=== PATIENT | female | born 1955 | race Two or more races ===

== ENCOUNTER 2023-06-18 07:15 | Inpatient (IN) | payer OTHER ==
[~2023-06-18] VITALS: Ht 162.6 cm; Wt 100.7 kg
[2023-06-18 09:01] LABS: HEMOGLOBIN 13.8 g/dL (12.0-15.00); MEAN CELL VOLUME 90.8 fL (80.00-100.00); MEAN CORPUSCULAR HEMOGLOBIN 31.3 pg (27.00-32.0); MEAN CORPUSCULAR HGB CONC 34.4 g/dl (32.0-36.0); PLATELET COUNT 236 K/uL (150-450); RED BLOOD COUNT 4.41 M/uL (4.00-6.00); RED CELL DISTRIBUTION WIDTH 14.3 % (11.5-14.5)
[2023-06-18 09:11] LABS: PH,URINE 6.5 (5.0-8.0); URINE APPEARANCE Clear; URINE BILIRRUBIN Negative (NEGATIVE); URINE BLOOD Trace; URINE COLOR Yellow; URINE GLUCOSE Negative (NEGATIVE); URINE LEUKOCYTE Large; URINE NITRATE Negative; URINE PROTEIN Negative (NEGATIVE); URINE UROBILINOGEN 0.2 E.U./dl
[2023-06-18 09:14] LABS: URINE BACTERIA 7965.6 uL (0.0-1933); URINE EPITHELIAL CELLS 32.7 uL (0.0-38.8); URINE RBC 19.6 uL (0.0-20.8); URINE WBC 206.5 uL (0.0-23.2)
[2023-06-18 09:33] LABS: INR 1.05; PARTIAL THROMBOPLASTIN TIME 26.5 SECONDS (22.0-34.0)
[2023-06-18] MEDS ORDERED: COZAAR100 MG PO (09:56)
[2023-06-18] MEDS ORDERED: AROMASIN25 MG PO (09:56)
[2023-06-18] MEDS ORDERED: COLCHICINE0.6 MG PO (09:57)
[2023-06-18] MEDS ORDERED: ENDOMETRIN100 MG VAG (09:57)
[2023-06-18 10:57] LABS: BILIRUBIN TOTAL 0.54 mg/dL (0.3-1.2); CALCIUM 10.4 mg/dL (8.5-10.1); CREATININE SERUM 1.18 mg/dL (0.55-1.02); GFR 45.55; GLOBULINA 3.7 G/DL (2.4-3.5); POTASSIUM 4.75 mEq/L (3.5-5.1); TOTAL PROTEIN 7.7 gm/dL (6.4-8.2)
[2023-06-29] MEDS ORDERED: VANCOMYCIN HCL 1,000 MG VIAL ONE (13:45)
[2023-06-29] MEDS ORDERED: BUPIVACAINE HCL/PF 0.5% 30ML ML ONE (13:45)
[2023-06-29] MEDS ORDERED: KETOROLAC TROMETHAMINE 60 MG VIAL IM ONE ×2 (13:45→15:30)
[2023-06-29] MEDS ORDERED: LIDOCAINE HCL 1%/Epi 20ML VIAL IJ ONE ×2 (13:45→15:30)
[2023-06-29] MEDS ORDERED: TRANEXAMIC ACID 100MG/1ML (1000MG) AMPUL IV ONE ×2 (13:46→18:45)
[2023-06-29] MEDS ORDERED: CEFAZOLIN SODIUM 1,000 MG VIAL ONE ×2 (13:47→18:25)
[2023-06-29] MEDS ORDERED: ALENDRONATE SOD35 MG (14:29)
[2023-06-29] MEDS ORDERED: ETODOLAC500 M1 (14:29)
[2023-06-29] MEDS ORDERED: GEMFIBROZIL600 MG (14:29)
[2023-06-29] MEDS ORDERED: BUPIVACAINE HCL/PF 0.25% 30ML VIAL InF ONE (15:30)
[2023-06-29] MEDS ORDERED: CEFAZOLIN SODIUM 1,000 MG VIAL IV ONE (15:30)
[2023-06-29] MEDS ORDERED: POVIDONE-IODINE 3 EA MED..SWAB TOP ONE (16:07)
[2023-06-29] MEDS ORDERED: MORPHINE SULFATE 4 MG/ML VIAL IV ONE (16:30)
[2023-06-29] MEDS ORDERED: POVIDONE-IODINE 0.75 OZ PACKET TOP ONE (16:30)
[2023-06-29] MEDS ORDERED: VANCOMYCIN HCL 1,000 MG VIAL IR ONE (16:45)
[2023-06-29] MEDS ORDERED: SODIUM CHLORIDE 0.45 % 1,000 ML IV SCH (16:45)
[2023-06-29] MEDS ORDERED: ONDANSETRON HCL 2 MG/ML VIAL IV PRN (16:45)
[2023-06-29] MEDS ORDERED: MORPHINE SULFATE 4 MG/ML CARTRIDGE IV PRN (16:45)
[2023-06-29] MEDS ORDERED: OxyCODONE HCL 5 MG TABLET (ROXICODONE) PO PRN (16:45)
[2023-06-29] MEDS ORDERED: GABAPENTIN 300 MG CAPSULE PO SCH (17:00)
[2023-06-29] MEDS ORDERED: CEFAZOLIN SODIUM 1,000 MG VIAL IV SCH (17:00)
[2023-06-29] MEDS ORDERED: ACETAMINOPHEN 500 MG GEL..CAP PO SCH (18:00)
[2023-06-30 07:05] LABS: HEMATOCRIT 36.2 % (36.0-45.00); HEMOGLOBIN 12.3 g/dL (12.0-15.00); MEAN CELL VOLUME 89.6 fL (80.00-100.00); MEAN CORPUSCULAR HEMOGLOBIN 30.6 pg (27.00-32.0); MEAN CORPUSCULAR HGB CONC 34.1 g/dl (32.0-36.0); PLATELET COUNT 198 K/uL (150-450); RED BLOOD COUNT 4.03 M/uL (4.00-6.00); RED CELL DISTRIBUTION WIDTH 14.5 % (11.5-14.5)
[2023-06-30] MEDS ORDERED: PERCOCET 5-3251 EACH PO (08:33)
[2023-06-30] MEDS ORDERED: DUI500 PO (08:33)
[2023-06-30] MEDS ORDERED: ELIQUIS2.5 MG PO (08:33)
[2023-06-30] MEDS ORDERED: APIXABAN 2.5 MG TABLET PO SCH (09:00)
[2023-06-30] MEDS ORDERED: SENNOSIDES 1 TAB TABLET PO SCH (09:00)
[2023-06-30] MEDS ORDERED: LOSARTAN POTASSIUM 100 MG TABLET PO SCH (11:14)
[2023-06-30] MEDS ORDERED: Cyanocobalamin/Mecobalamin 1 TAB.SL SL SCH (14:20)
[2023-06-30] MEDS ORDERED: SOD FERRIC GLUC COMPLX/SUCROSE 62.5 MG/5 ML AMPUL IV SCH (14:20)
[2023-06-30] MEDS ORDERED: VITAMIN B COMPLEX 1 EACH PO SCH (17:00)
[2023-07-01 08:37] LABS: HEMATOCRIT 33.7 % (36.0-45.00); HEMOGLOBIN 11.7 g/dL (12.0-15.00); MEAN CELL VOLUME 90.5 fL (80.00-100.00); MEAN CORPUSCULAR HEMOGLOBIN 31.3 pg (27.00-32.0); MEAN CORPUSCULAR HGB CONC 34.6 g/dl (32.0-36.0); PLATELET COUNT 171 K/uL (150-450); RED BLOOD COUNT 3.73 M/uL (4.00-6.00); RED CELL DISTRIBUTION WIDTH 14.4 % (11.5-14.5)
[2023-07-01] MEDS ORDERED: IRON FUM,PS/FOLIC ACID/VITC/B3 1 CAP CAPSULE PO SCH (09:00)
== END 2023-07-01 17:17 | disposition home or self-care (01) | DRG 470 ==
LOC: O/R 06-29 05:50 → SURH 06-29 07:15 → OB/GYN 06-29 17:17
PROVIDERS: ADMIT Orthopaedic Surgery; ATTEND Orthopaedic Surgery
PROC: 0MNN0ZZ Release Right Knee Bursa and Ligament, Open Approach (ICD-10-PCS; 2023-06-29)
PROC: 0SRC0J9 Replacement of Right Knee Joint with Synthetic Substitute, Cemented, Open Approach (ICD-10-PCS; principal; 2023-06-29 11:30)
DX: M17.11 Unilateral primary osteoarthritis, right knee (principal); D62 Acute posthemorrhagic anemia; M22.11 Recurrent subluxation of patella, right knee; I10 Essential (primary) hypertension; C50.919 Malignant neoplasm of unspecified site of unspecified female breast

== ENCOUNTER 2024-03-13 07:45 | Inpatient (IN) | payer OTHER ==
[~2024-03-13] VITALS: Ht 180.3 cm; Wt 101.2 kg
[~2024-03-13 07:45] MED LIST: ALENDRONATE SOD35 MG; AROMASIN25 MG PO; COLCHICINE0.6 MG PO; COZAAR100 MG PO; DUI500 PO; ELIQUIS2.5 MG PO; ENDOMETRIN100 MG VAG; ETODOLAC500 M1; GEMFIBROZIL600 MG; PERCOCET 5-3251 EACH PO
[2024-03-13 09:07] LABS: PH,URINE 5.5 (5.0-8.0); URINE APPEARANCE Clear; URINE BILIRRUBIN Negative (NEGATIVE); URINE BLOOD NHT; URINE COLOR Yellow; URINE GLUCOSE Negative (NEGATIVE); URINE KETONE Negative (NEGATIVE); URINE LEUKOCYTE Small; URINE NITRATE Negative; URINE PROTEIN Negative (NEGATIVE); URINE UROBILINOGEN 0.2 E.U./dl
[2024-03-13 09:09] LABS: URINE BACTERIA 190.2 uL (0.0-1933); URINE EPITHELIAL CELLS 13.7 uL (0.0-38.8); URINE RBC 13.7 uL (0.0-20.8); URINE WBC 28.1 uL (0.0-23.2)
[2024-03-13 09:49] LABS: HEMOGLOBIN 13.7 g/dL (12.0-15.00); MEAN CELL VOLUME 90.3 fL (80.00-100.00); MEAN CORPUSCULAR HEMOGLOBIN 30.9 pg (27.00-32.0); MEAN CORPUSCULAR HGB CONC 34.2 g/dl (32.0-36.0); PLATELET COUNT 272 K/uL (150-450); RED BLOOD COUNT 4.44 M/uL (4.00-6.00); RED CELL DISTRIBUTION WIDTH 14.7 % (11.5-14.5)
[2024-03-13 10:14] VITALS: BP 144/98
[2024-03-13 10:18] LABS: INR 1.09; PARTIAL THROMBOPLASTIN TIME 30.2 SECONDS (22.0-34.0)
[2024-03-13 10:25] LABS: PROTHROMBIN TIME 11.8 SECONDS (9.0-11.5)
[2024-03-13 10:54] LABS: ALBUMIN 3.8 gm/dL (3.4-5.0); BILIRUBIN TOTAL 0.42 mg/dL (0.3-1.2); CHOL HDL RATIO 3.2 (0-5.0); CREATININE SERUM 1.2 mg/dL (0.55-1.02); GFR 44.54; GLOBULINA 3.9 G/DL (2.4-3.5); POTASSIUM 4.49 mEq/L (3.5-5.1); TOTAL PROTEIN 7.7 gm/dL (6.4-8.2)
[2024-03-13 12:09] LABS: RH POSITIVE
[2024-03-21] MEDS ORDERED: TRANEXAMIC ACID 100MG/1ML (1000MG) AMPUL IV ONE ×2 (08:15)
[2024-03-21] MEDS ORDERED: KETOROLAC TROMETHAMINE 60 MG VIAL IM ONE (08:15)
[2024-03-21] MEDS ORDERED: ISOPROPYL ALCOHOL 30 ML OUNCE TOP SCH (08:15)
[2024-03-21] MEDS ORDERED: MORPHINE SULFATE 4 MG/ML VIAL IV ONE ×2 (08:15→09:50)
[2024-03-21] MEDS ORDERED: LIDOCAINE HCL 1%/EPINEPHRINE 20ML VIAL IJ SCH (08:15)
[2024-03-21] MEDS ORDERED: CEFAZOLIN SODIUM 1,000 MG VIAL IV ONE (08:15)
[2024-03-21] MEDS ORDERED: BUPIVACAINE HCL/PF 0.25% 50 ML VIAL IJ ONE (08:15)
[2024-03-21] MEDS ORDERED: GABAPENTIN 300 MG CAPSULE PO SCH (09:33)
[2024-03-21] MEDS ORDERED: MORPHINE SULFATE 4 MG/ML CARTRIDGE IV PRN (09:45)
[2024-03-21] MEDS ORDERED: SODIUM CHLORIDE 0.45 % 1,000 ML IV SCH (09:45)
[2024-03-21] MEDS ORDERED: OxyCODONE HCL 5 MG TABLET (ROXICODONE) PO PRN (09:45)
[2024-03-21] MEDS ORDERED: ONDANSETRON HCL 2 MG/ML VIAL IV PRN (09:45)
[2024-03-21] MEDS ORDERED: ONDANSETRON HCL 2 MG/ML VIAL IV ONE (10:50)
[2024-03-21] MEDS ORDERED: ACETAMINOPHEN 500 MG GEL..CAP PO SCH (12:00)
[2024-03-21 14:00] VITALS: BP 139/84; O2SAT 96
[2024-03-21 16:40] VITALS: BP 118/78; O2SAT 95
[2024-03-21] MEDS ORDERED: CEFAZOLIN SODIUM 1,000 MG VIAL IV SCH (17:00)
[2024-03-21] MEDS ORDERED: FAMOtidine 20 MG TABLET PO SCH (17:00)
[2024-03-22] VITALS: BP 113/71; O2SAT 95
[2024-03-22 06:30] LABS: HEMATOCRIT 35.6 % (36.0-45.00); MEAN CELL VOLUME 90.3 fL (80.00-100.00); MEAN CORPUSCULAR HEMOGLOBIN 30.3 pg (27.00-32.0); MEAN CORPUSCULAR HGB CONC 33.6 g/dl (32.0-36.0); PLATELET COUNT 228 K/uL (150-450); RED BLOOD COUNT 3.94 M/uL (4.00-6.00); RED CELL DISTRIBUTION WIDTH 14.6 % (11.5-14.5)
[2024-03-22] MEDS ORDERED: PERCOCET 5-3251 EACH PO (08:39)
[2024-03-22] MEDS ORDERED: ELIQUIS2.5 MG PO (08:39)
[2024-03-22] MEDS ORDERED: DUI500 PO (08:39)
[2024-03-22] MEDS ORDERED: LOSARTAN POTASSIUM 100 MG TABLET PO SCH (09:00)
[2024-03-22] MEDS ORDERED: APIXABAN 2.5 MG TABLET PO SCH (09:00)
[2024-03-22] MEDS ORDERED: SENNOSIDES 1 TAB TABLET PO SCH (09:00)
[2024-03-22 09:11] VITALS: BP 107/56; O2SAT 95
[2024-03-22] MEDS ORDERED: SOD FERRIC GLUC COMPLX/SUCROSE 62.5 MG/5 ML AMPUL IV NR (13:00)
[2024-03-22] MEDS ORDERED: Cyanocobalamin/Mecobalamin 1 TAB.SL SL NR (13:00)
[2024-03-22 16:00] VITALS: BP 143/71; O2SAT 95
[2024-03-22] MEDS ORDERED: VITAMIN B COMPLEX 1 EACH PO SCH (17:00)
[2024-03-23 00:35] VITALS: BP 140/58; O2SAT 95
[2024-03-23 08:00] VITALS: BP 121/76; O2SAT 96
[2024-03-23] MEDS ORDERED: SOD FERRIC GLUC COMPLX/SUCROSE 62.5 MG/5 ML AMPUL IV SCH (09:00)
[2024-03-23] MEDS ORDERED: IRON FUM,PS/FOLIC ACID/VITC/B3 1 CAP CAPSULE PO SCH (09:00)
[2024-03-23] MEDS ORDERED: Cyanocobalamin/Mecobalamin 1 TAB.SL SL SCH (09:00)
[2024-03-23 09:38] LABS: HEMATOCRIT 34.7 % (36.0-45.00); HEMOGLOBIN 12.1 g/dL (12.0-15.00); MEAN CELL VOLUME 89.7 fL (80.00-100.00); MEAN CORPUSCULAR HEMOGLOBIN 31.1 pg (27.00-32.0); MEAN CORPUSCULAR HGB CONC 34.7 g/dl (32.0-36.0); PLATELET COUNT 217 K/uL (150-450); RED BLOOD COUNT 3.87 M/uL (4.00-6.00); RED CELL DISTRIBUTION WIDTH 14.6 % (11.5-14.5)
== END 2024-03-23 16:56 | DRG 470 ==
LOC: O/R 03-21 05:08 → SURH 03-21 07:45 → SURG 03-21 12:50 → SURH 03-21 20:00 → SURG 03-23 16:56
PROVIDERS: ADMIT Orthopaedic Surgery; ATTEND Orthopaedic Surgery
PROC: 0MNP0ZZ Release Left Knee Bursa and Ligament, Open Approach (ICD-10-PCS; 2024-03-21)
PROC: 0SUD07Z Supplement Left Knee Joint with Autologous Tissue Substitute, Open Approach (ICD-10-PCS; 2024-03-21)
PROC: 0SRD0J9 Replacement of Left Knee Joint with Synthetic Substitute, Cemented, Open Approach (ICD-10-PCS; principal; 2024-03-21 20:00)
DX: M17.12 Unilateral primary osteoarthritis, left knee (principal); M22.12 Recurrent subluxation of patella, left knee; M81.0 Age-related osteoporosis without current pathological fracture

== ENCOUNTER 2025-03-26 07:45 | Inpatient (IN) | payer OTHER ==
[~2025-03-26] VITALS: Ht 162.6 cm; Wt 99.8 kg
[2025-03-26 09:21] VITALS: BP 148/75
[2025-03-26 10:15] LABS: BASO % 1.0 % (0.1-1.2); EOS # 0.11 (0.04-0.54); EOS % 1.5 % (0.7-7.0); LYMPH # 1.84 (1.18-3.74); LYMPH % 25.1 % (19.3-53.1); MEAN PLATELET VOLUME 10.50 fl (9.4-12.4); MONO # 0.49 (0.24-0.82); MONO % 6.7 % (4.7-12.5); NEUT # 4.81 (1.56-6.13); NEUT % 65.4 % (34.0-71.1); RED CELL DISTRIBUTION WIDTH 14.6 % (11.6-14.4)
[2025-03-26 10:42] LABS: INR 1.1
[2025-03-26 11:38] LABS: URINE APPEARANCE Clear; URINE BILIRRUBIN Negative (NEGATIVE); URINE BLOOD Small; URINE COLOR Yellow; URINE GLUCOSE Negative (NEGATIVE); URINE KETONE Negative (NEGATIVE); URINE LEUKOCYTE Small; URINE NITRATE Negative; URINE PROTEIN Negative (NEGATIVE); URINE UROBILINOGEN 0.2 E.U./dl
[2025-03-26 11:42] LABS: URINE BACTERIA 505.1 uL (0.0-1933); URINE EPITHELIAL CELLS 9.3 uL (0.0-38.8); URINE RBC 38.7 uL (0.0-20.8); URINE WBC 24.2 uL (0.0-23.2)
[2025-03-26 11:46] LABS: URINE CAST 0.14 uL (0.0-1.40)
[2025-03-26 11:48] LABS: ALT/SGPT 30.0 U/L (12-78); AST/SGOT 15.0 U/L (15-37); BILIRUBIN TOTAL 0.53 mg/dL (0.3-1.2); BUN CREA RATIO 21.0 (7.0-25.0); CHOL HDL RATIO 3.7 (0-5.0); CREATININE SERUM 1.11 mg/dL (0.55-1.02); GFR 48.59; GLOBULINA 3.9 G/DL (2.4-3.5); GLUCOSE FASTING 96.0 mg/dL (65-100); HDL 39.0 mg/dl (40-60); LDL 83.0 mg/dl (0-130); OSMOLALITY SERUM 290.0 MOSM/KG (275-295); VLDL 24.0 (0-39)
[2025-04-03] MEDS ORDERED: ENALAPRILAT DIHYDRATE 1.25 MG/ML VIAL IV PRN (13:45)
[2025-04-03] MEDS ORDERED: MORPHINE SULFATE 4 MG/ML CARTRIDGE IV ONE (14:45)
[2025-04-03] MEDS ORDERED: CEFAZOLIN SODIUM 1,000 MG VIAL IV ONE (14:45)
[2025-04-03] MEDS ORDERED: TRANEXAMIC ACID 100MG/1ML (1000MG) AMPUL IV ONE ×2 (14:45)
[2025-04-03] MEDS ORDERED: KETOROLAC TROMETHAMINE 60 MG VIAL IM ONE (14:45)
[2025-04-03] MEDS ORDERED: SODIUM CHLORIDE 0.45 % 1,000 ML IV SCH (17:30)
[2025-04-03] MEDS ORDERED: OxyCODONE HCL 5 MG TABLET (ROXICODONE) PO PRN (17:30)
[2025-04-03] MEDS ORDERED: ONDANSETRON HCL 2 MG/ML VIAL IV PRN (17:30)
[2025-04-03] MEDS ORDERED: MORPHINE SULFATE 4 MG/ML CARTRIDGE IV PRN (17:30)
[2025-04-03] MEDS ORDERED: ACETAMINOPHEN 500 MG GEL..CAP PO SCH (18:00)
[2025-04-03] MEDS ORDERED: ONDANSETRON HCL 2 MG/ML VIAL ONE (18:17)
[2025-04-03 19:00] VITALS: BP 137/75; O2SAT 96
[2025-04-04] MEDS ORDERED: GABAPENTIN 300 MG CAPSULE PO SCH (01:00)
[2025-04-04] MEDS ORDERED: CEFAZOLIN SODIUM 1,000 MG VIAL IV SCH (01:00)
[2025-04-04 03:01] VITALS: BP 128/76; O2SAT 97
[2025-04-04] MEDS ORDERED: PERCOCET 5-3251 EACH PO (07:46)
[2025-04-04] MEDS ORDERED: DUI500 PO (07:46)
[2025-04-04] MEDS ORDERED: ELIQUIS2.5 MG PO (07:46)
[2025-04-04 07:54] LABS: BASO % 0.3 % (0.1-1.2); EOS # 0.06 (0.04-0.54); EOS % 0.5 % (0.7-7.0); LYMPH # 1.67 (1.18-3.74); LYMPH % 13.2 % (19.3-53.1); MEAN PLATELET VOLUME 10.80 fl (9.4-12.4); MONO # 1.03 (0.24-0.82); MONO % 8.1 % (4.7-12.5); NEUT # 9.80 (1.56-6.13); NEUT % 77.6 % (34.0-71.1); RED CELL DISTRIBUTION WIDTH 14.7 % (11.6-14.4)
[2025-04-04] MEDS ORDERED: SENNOSIDES 1 TAB TABLET PO SCH (09:00)
[2025-04-04] MEDS ORDERED: APIXABAN 2.5 MG TABLET PO SCH (09:00)
[2025-04-04] MEDS ORDERED: LOSARTAN POTASSIUM 100 MG TABLET PO SCH (09:00)
[2025-04-04 09:02] VITALS: BP 147/82; O2SAT 95
[2025-04-04 16:00] VITALS: BP 144/80; O2SAT 94
[2025-04-05 00:30] VITALS: BP 135/82; O2SAT 98
[2025-04-05 06:24] LABS: BASO % 0.4 % (0.1-1.2); EOS # 0.04 (0.04-0.54); EOS % 0.3 % (0.7-7.0); LYMPH # 1.06 (1.18-3.74); LYMPH % 9.0 % (19.3-53.1); MEAN PLATELET VOLUME 10.70 fl (9.4-12.4); MONO # 0.88 (0.24-0.82); MONO % 7.4 % (4.7-12.5); NEUT # 9.77 (1.56-6.13); NEUT % 82.6 % (34.0-71.1); RED CELL DISTRIBUTION WIDTH 14.4 % (11.6-14.4)
[2025-04-05 08:28] VITALS: BP 107/69; O2SAT 99
[2025-04-05] MEDS ORDERED: IRON FUM,PS/FOLIC ACID/VITC/B3 1 CAP CAPSULE PO SCH (09:00)
[2025-04-05 16:45] VITALS: BP 139/79; O2SAT 96
[2025-04-05] MEDS ORDERED: ACETAMINOPHEN-1 EAC2 PO (17:28)
== END 2025-04-05 18:59 | disposition home or self-care (01) | DRG 468 ==
LOC: SURH 04-03 07:45 → O/R 04-03 08:00 → SURH 04-03 15:34
PROVIDERS: ADMIT Orthopaedic Surgery; ATTEND Orthopaedic Surgery
PROC: 0SRD0J9 Replacement of Left Knee Joint with Synthetic Substitute, Cemented, Open Approach (ICD-10-PCS; 2025-04-03)
PROC: 0QUF0KZ Supplement Left Patella with Nonautologous Tissue Substitute, Open Approach (ICD-10-PCS; 2025-04-03)
PROC: 0SPD0JZ Removal of Synthetic Substitute from Left Knee Joint, Open Approach (ICD-10-PCS; principal; 2025-04-03 16:30)
DX: T84.093A Other mechanical complication of internal left knee prosthesis, initial encounter (principal); M17.12 Unilateral primary osteoarthritis, left knee; M85.462 Solitary bone cyst, left tibia and fibula